=== PATIENT | male | born 1995 | race American Indian/Alaskan Native ===

== ENCOUNTER 2018-10-20 12:44 | Emergency (ER) | payer OTHER ==
[2018-10-20 13:44] VITALS: BP 139/85
--- NOTE | 2018-10-20 13:51 | Emergency Department Report ---
Blank Doc - Documentation Documentation: reports testicular injury after dog jumped on him and deflated lt testicle. re ports pain on /off n No penile discharge. Went [facility] today and was sent to RD for evaluation Left testicle minimal TTP otherwise normal exam tsticular ultrasound
--- NOTE | 2018-10-20 15:07 | Ultrasound Report ---
ULTRASOUND TESTICULAR DOPPLER COMPLETE HISTORY: testicular injury with acute pain COMPARISON: None. TECHNIQUE: Grayscale, color and spectral Doppler images were obtained of the scrotum. FINDINGS: RIGHT: Right testicle: No significant abnormality. No mass. Right testicular size: 4.9 x 2.0 x 3.3 cm. Right epididymis: No significant abnormality. LEFT: Left testicle: No significant abnormality. No mass. Left testicular size: 4.4 x 1.9 x 2.9 cm. Left epididymis: No significant abnormality. Additional findings: A moderate left varicocele is identified. No significant hydrocele. Spectral Doppler waveforms demonstrate arterial flow bilaterally. IMPRESSION: No evidence for acute testicular injury. Unremarkable testicles and epididymides. Moderate left varicocele. Signer Name: Georges Laureano Jr, MD Signed: 10/20/2018 3:02 PM Workstation Name: [id number]
--- NOTE | 2018-10-20 15:30 | Emergency Department Report ---
HPI - General Chief Complaint: Urogenital-Male Time Seen by Provider: 10/20/18 13:44 - HPI HPI: 23-year-old male presents to the emergency department for evaluation of his scrotum and testicles. Patient says that his dog jumped up on him about 4 or 5 weeks ago and scratched the left side of his scrotum. Since that time he has been having some intermittent pain and says that he feels like the left testicle now feels abnormal or asymmetrical to the right side and he wanted to get checked out to make sure that everything was alright. He says that he did contact a urologist, although he has not established care with them, and was told to come to the emergency department first for evaluation. He denies any fever, redness or swelling of the scrotum, dysuria, difficulty urinating. He denies any past medical history. He has not taken anything for his symptoms prior to presentation. ED Past Medical Hx - Past Medical History Previous Medical History?: No - Surgical History Past Surgical History?: No - Social History Smoking Status: Never Smoker Substance Use Type: None ED Review of Systems ROS: Stated complaint: OTHER Other details as noted in HPI Comment: All other systems reviewed and negative Constitutional: denies: chills, fever Gastrointestinal: denies: abdominal pain, vomiting Genitourinary: testicular pain. denies: dysuria, discharge Musculoskeletal: denies: back pain, arthralgia Skin: denies: rash, lesions Physical Exam - Physical Exam Vital Signs: Vital Signs 10/20/18 13:38 Temperature 97.9 F Pulse Rate 93 H Respiratory 18 Rate Blood Pressure 139/85 O2 Sat by Pulse 99 Oximetry Physical Exam: GENERAL: The patient is well-developed well-nourished. HENT: Normocephalic. Atraumatic. Patient has moist mucous membranes. EYES: Extraocular motions are intact. NECK: Supple. Trachea is midline. CHEST/LUNGS: Clear to auscultation. There is no respiratory distress noted. HEART/CARDIOVASCULAR: Regular. There is no tachycardia. There is no murmur. ABDOMEN: Abdomen is soft, nontender. Patient has normal bowel sounds. There is no abdominal distention. SKIN: Skin is warm and dry. NEURO: The patient is awake, alert, and oriented. The patient is cooperative. The patient has no focal neurologic deficits. The patient has normal speech. MUSCULOSKELETAL: There is no tenderness or deformity. There is no evidence of acute injury. : There are no obvious penile or scrotal abnormalities. No hernias palpable. No tenderness to palpation of the testicles. ED Course Vital Signs 10/20/18 13:38 Temperature 97.9 F Pulse Rate 93 H Respiratory 18 Rate Blood Pressure 139/85 O2 Sat by Pulse 99 Oximetry ED Medical Decision Making - Radiology Data Radiology results: report reviewed ULTRASOUND TESTICULAR DOPPLER COMPLETE HISTORY: testicular injury with acute pain COMPARISON: None. TECHNIQUE: Grayscale, color and spectral Doppler images were obtained of the scrotum. FINDINGS: RIGHT: Right testicle: No significant abnormality. No mass. Right testicular size: 4.9 x 2.0 x 3.3 cm. Right epididymis: No significant abnormality. LEFT: Left testicle: No significant abnormality. No mass. Left testicular size: 4.4 x 1.9 x 2.9 cm. Left epididymis: No significant abnormality. Additional findings: A moderate left varicocele is identified. No significant hydrocele. Spectral Doppler waveforms demonstrate arterial flow bilaterally. IMPRESSION: No evidence for acute testicular injury. Unremarkable testicles and epididymides. Moderate left varicocele. - Medical Decision Making This patient presents to the emergency department for evaluation of his left testicle as he has been having some intermittent pains and he believes there is some type of abnormality after his dog jumped up on him and scratched the area of the scrotum a few weeks ago. There is no obvious swelling to the scrotum. No erythema, lesions. On examination there is no palpable hernia, no testicular tenderness to palpation. An ultrasound was done that does not show any torsion but does show a moderate left-sided varicocele. It is possible that the patient is able to palpate this and this is what he was concerned about regarding some type of abnormality that he fell. However this does not appear to be a urological emergency. I did explain to him that we will be important to follow up with urology regarding the varicocele and he has been given a referral. He will return to the emergency Department with any worsening of his symptoms or any acute distress. - Differential Diagnosis testicular torsion, varicocele, hydrocele, cellulitis Critical Care Time: No Critical care attestation.: If time is entered above; I have spent that time in minutes in the direct care of this critically ill patient, excluding procedure time. ED Disposition Clinical Impression: Left varicocele, Testicular pain, left Disposition: DC-01 TO HOME OR SELFCARE Is pt being admited?: No Condition: Stable Instructions: Varicocele (ED) Additional Instructions: Please follow up with a primary care physician. Please follow up with a urologist regarding your intermittent testicular pain and the varicocele found on ultrasound. I am giving you a referral for a local urologist, Dr. [place]. Return to the emergency Department with any worsening of your symptoms or any acute distress. Referrals: DINORA CUBA MD [Staff Physician] - 3-5 Days Time of Disposition: 15:30
== END 2018-10-20 17:10 | disposition home or self-care (01) ==
LOC: ED 12:44
DX: I86.1 Scrotal varices (principal)
CPT/HCPCS: 93975